=== PATIENT | female | born 1940 | race Caucasian/White ===

== ENCOUNTER 2016-09-24 08:44 | Inpatient (IN) | payer OTHER ==
[2016-09-02 13:51] VITALS: BMI 29.0
--- NOTE | 2016-09-02 14:32 | PAT Medication Instructions ---
Service Date Sep 02, 2016. Current Home Medication List Acetaminophen (Tylenol), 1,000 MG PO TID Aspirin (Aspirin Chewable), 81 MG PO QAM Calcium Carbonate-Vitamin D (Calcium + D), 1 TAB PO BID Levothyroxine Sodium (Levothyroxine Sodium), 1 TAB PO QAM Lisinopril (Prinivil), 20 MG PO QAM Meloxicam (Mobic), 7.5 MG PO BID PRN for Pain Multivitamin (Multivitamin), 1 TAB PO QPM Washington-3 Fatty Acids (Washington 3), 1 CAP PO BID Omeprazole (Prilosec), 20 MG PO QPM Tapentadol Hcl (Nucynta), 50 MG PO BID PRN for RN Triamterene/Hctz (Triamterene/Hctz 37.5-25MG), 1 TAB PO QAM Medication Instructions For Your Scheduled Surgery - Check with surgeon for instructions: Meloxicam (Mobic), 7.5 MG PO BID PRN for Pain - Hold the following medications 2 weeks prior to surgery: Washington-3 Fatty Acids (Washington 3), 1 CAP PO BID - Hold the following medications the morning of surgery: Triamterene/Hctz (Triamterene/Hctz 37.5-25MG), 1 TAB PO QAM Lisinopril (Prinivil), 20 MG PO QAM Multivitamin (Multivitamin), 1 TAB PO QPM Calcium Carbonate-Vitamin D (Calcium + D), 1 TAB PO BID - Take the following medications the morning of surgery with a sip of water: Levothyroxine Sodium (Levothyroxine Sodium), 1 TAB PO QAM Acetaminophen (Tylenol), 1,000 MG PO TID Tapentadol Hcl (Nucynta), 50 MG PO BID PRN for RN Aspirin (Aspirin Chewable), 81 MG PO QAM (okay to continue per surgeon) - Take the following medications as scheduled the night before surgery: Omeprazole (Prilosec), 20 MG PO QPM Calcium Carbonate-Vitamin D (Calcium + D), 1 TAB PO BID Acetaminophen (Tylenol), 1,000 MG PO TID Tapentadol Hcl (Nucynta), 50 MG PO BID PRN for RN If you have any questions please call us at [phone] (Liseth Lerma PA-C) or [phone] or [phone]
[2016-09-02 15:17] LABS: BASO % 0.4 %; BASO ABS # 0.02 K/uL (0-0.2); COMPLETE YES; EOS % 1.3 %; MEAN CELL VOLUME 89.1 fL (80-100); MEAN CORPUSCULAR HEMOGLOBIN 30.9 pg (25-34); MEAN CORPUSCULAR HGB CONC 34.7 g/dl (32-36); MEAN PLATELET VOLUME 8.6 fL (7.4-10.4); NEUT % 49.3 %; PLATELET COUNT 281 K/uL (130-400); RED BLOOD COUNT 4.04 M/uL (4.2-5.4); WHITE BLOOD COUNT 4.63 K/uL (4.8-10.8)
[2016-09-02 15:22] LABS: URINE APPEARANCE CLEAR (CLEAR); URINE BILIRUBIN NEG (NEG); URINE COLOR YELLOW; URINE EPITHELIAL CELL AUTO 0-5 /lpf (0-5); URINE NITRITE NEG (NEG); URINE PH 6.5 (4.5-7.5); URINE SPECIFIC GRAVITY 1.012 (1.000-1.030); UROBILINOGEN NEG (NEG)
[2016-09-02 15:24] LABS: PARTIAL THROMBOPLASTIN RATIO 1.1; PROTHROMBIN TIME (PATIENT) 10.7 SECONDS (9.0-12.0)
[2016-09-02 15:29] LABS: MANUAL MICROSCOPIC REQUIRED? NO; REVIEW REQ? NO
--- NOTE | 2016-09-02 15:31 | DIAGNOSTIC IMAGING REPORT ---
CHEST 2 VIEWS ROUTINE CLINICAL HISTORY: Preoperative chest COMPARISON STUDY: No previous studies for comparison. FINDINGS: There is a thoracolumbar scoliosis. The heart is at the upper limits of normal in size. There is a retrocardiac opacity consistent with a hiatal hernia. There is no focal pulmonary consolidation. There is no failure. There are no pleural effusions.[ IMPRESSION: No active disease in the chest. Electronically signed by: Alex Perez M.D. 09/02/2016 3:29 PM
[2016-09-02 15:52] LABS: ESTIMATED AVERAGE GLUCOSE 97 mg/dl; HA1C FLAG Normal (Normal)
[2016-09-02 16:51] LABS: BUN/CREATININE RATIO 20.9 (10-20); CALCIUM 9.6 mg/dl (8.5-10.1); CREATININE 0.9 mg/dl (0.60-1.20); POTASSIUM 4.1 mmol/L (3.5-5.1)
--- NOTE | 2016-09-23 09:25 | HISTORY & PHYSICAL EXAMINATION ---
DATE OF ADMISSION: 09/24/2016 CHIEF COMPLAINT: Left knee pain. HISTORY OF PRESENT ILLNESS: The patient is a 76-year-old female with known osteoarthritis about her left knee. She has had multiple previous corticosteroid injections. She continues to have pain and disability with activities of daily living and now desires to proceed with left total knee arthroplasty. PAST MEDICAL HISTORY: Acid reflux, basal cell carcinoma, hiatal hernia, hypertension, peripheral vascular disease, thyroid cyst. PAST SURGICAL HISTORY: Right shoulder, cardiac catheterization, cataract surgery, heel spur removal, hysterectomy, thyroidectomy, umbilical hernia repair. MEDICATIONS: Include calcium with vitamin D twice daily, Ecotrin 325 mg daily, levothyroxine 50 mcg daily, lisinopril 20 mg daily, Meloxicam 15 mg daily, multivitamin daily, Nucynta 50 mg q. 6 hours p.r.n., omega-3 fish oil twice daily; Prilosec OTC daily, triamterene/HCTZ 37.5/25 once daily. ALLERGIES: INCLUDE AMOXICILLIN WHICH CAUSES A RASH. SOCIAL HISTORY AND REVIEW OF SYSTEMS: Noncontributory. PHYSICAL EXAMINATION: GENERAL: Well-nourished, well-developed elderly female who appears her stated age. HEENT: Normocephalic, atraumatic, extraocular movements intact, oropharynx pink and moist. NECK: Supple without adenopathy. LUNGS: Clear to auscultation bilaterally. HEART: Regular rate and rhythm. ABDOMEN: Soft, nontender, nondistended. EXTREMITIES: The upper extremity is within normal limits. The left knee has a neutral alignment. She complains primarily of lateral compartment pain. Her range of motion from 0-125 degrees. X-RAYS: X-rays were reviewed. She has a fairly neutrally aligned knee. She has moderate narrowing of the lateral joint compartment with near [id number] arthritis on the flexion view. She has mild degenerative changes about the patellofemoral joint. ASSESSMENT: Left knee degenerative joint disease. PLAN: Risks versus benefits were discussed. Consent was obtained. The patient's primary care physician is Dr. Janelle Avalos from [place]. Her psychological operations is Dr. Javier Lopez from [facility]. Will proceed with left total knee arthroplasty upon preop workup and medical clearance.
[~2016-09-24] VITALS: Ht 152.4 cm; Wt 68.9 kg
[2016-09-24] VITALS (11 sets, daily range): BP systolic 138–183; BP diastolic 70–103; PULSE 69–95; TEMP 34.7–36.8; O2SAT 95–99; Ht 152.4 cm; Wt 68.9 kg
[~2016-09-24 08:44] MED LIST: ACET-1256 PO; ACETAMINOPHEN 500 MG TAB PO SCH; ASPCH81X PO; BUPIVACAINE 0.25% 30 ML VIAL ONE; BUPIVACAINE 0.5 % 5 MG/1 ML PF 10ML VIAL ONE; CALC600T9 PO; CeleBREX 200 MG CAP PO SCH; DEXAMETHASONE 4 MG TAB PO SCH; FAMOTIDINE 20 MG TAB PO SCH; GABAPENTIN 300 MG CAP PO SCH; LACTATED RINGER'S 1000ML 1,000 ML IV SCH; LACTATED RINGER'S 1000ML 500 ML IV ONE; LACTATED RINGER'S 1000ML IV SCH; LEVO25TA5 PO; LISI20TA3 PO; MELO7.5T5 PO; METOCLOPRAMIDE HCL 10 MG TAB PO SCH; MULT-506 PO; OMEG12006 PO; PRLSR20 PO; ROPIVACAINE 5MG/ML 30 ML 150 MG, BUPIVACAINE/EPINEPHR 0.5% MPF 30 ML, KETOROLAC TROMETH... INFIL SCH; TAPE50TA PO; TRIATAB3 PO; VANCOMYCIN INJ 1,050 MG in SODIUM CHLORIDE 0.9% 250ML 250 ML IV SCH
[2016-09-24] MEDS ORDERED: MIDAZOLAM HCL 1 MG/ML 2ML VIAL ONE ×2 (08:46)
[2016-09-24] MEDS ORDERED: FENTANYL CITRATE INJ 50 MCG/1 ML 2 ML VIAL ONE (08:48)
[2016-09-24] MEDS ORDERED: PROPOFOL IV EMULSION 10 MG/ML 20 ML VIAL IV ONE (08:49)
[2016-09-24] MEDS ORDERED: ONDANSETRON INJ 2 MG/ML 2 ML VIAL ONE (08:49)
[2016-09-24] MEDS ORDERED: LIDOCAINE HCL 2% 2 ML VIAL (20MG/ML) ONE (08:49)
--- NOTE | 2016-09-24 09:26 | History & Physical Bridge Note ---
H&P Re-Evaluation Bridge Note: I have examined the patient, reviewed the History & Physical and in the interval since the performance of the History & Physical I have noted the following changes of clinical significance: No changes noted
[2016-09-24] MEDS: TRANEXAMIC ACID INJ 1,000 MG in SODIUM CHLORIDE 0.9% 100ML 100 ML IV SCH ×2 (09:48→15:26)
[2016-09-24] MEDS ORDERED: ORTHO JOINT ANESTHETIC ONE (09:57)
[2016-09-24] MEDS ORDERED: ATROPINE SULFATE 0.1 MG/ML 5ML SYR IV PRN (10:30)
[2016-09-24] MEDS ORDERED: HYDROmorphone INJ 2 MG/ML SYR/VIAL IV PRN (10:30)
[2016-09-24] MEDS ORDERED: KETOROLAC TROMETHAMINE 30 MG/ML VIAL IV. PRN (10:30)
[2016-09-24] MEDS ORDERED: ONDANSETRON INJ 2 MG/ML 2 ML VIAL IV PRN (10:30)
[2016-09-24] MEDS ORDERED: PHENYLEPHRINE 100MCG/ML 5ML SYR IV PRN (10:30)
[2016-09-24] MEDS ORDERED: EpHEDrine SULFATE INJ 50 MG/ML AMP IV PRN (10:30)
[2016-09-24] MEDS ORDERED: MAGNESIUM HYDROXIDE SUSP 30 ML UDC PO PRN (12:00)
[2016-09-24] MEDS ORDERED: BISACODYL 10 MG SUPP PR PRN (12:00)
[2016-09-24] MEDS ORDERED: DiphenhydrAMINE HCL 50 MG/ML VIAL IV PRN (12:00)
[2016-09-24] MEDS ORDERED: ZOLPIDEM TARTRATE 5 MG TAB PO PRN (12:00)
[2016-09-24] MEDS ORDERED: MoRPHine SULFATE 2 MG/ML CARP IV PRN (12:00)
[2016-09-24] MEDS ORDERED: ALUMINUM/MAGNESIUM/SIMETH (MAALOX MAX) 30 ML UDC PO PRN (12:00)
--- NOTE | 2016-09-24 12:20 | DIAGNOSTIC IMAGING REPORT ---
LEFT KNEE 2 VIEWS History: Left total knee arthroplasty. Degenerative arthritis. Postop. FINDINGS: The patient is status post a left total knee arthroplasty. The hardware is intact. No fracture or dislocation. Skin adilia and surgical drains are in place. IMPRESSION: Left total knee arthroplasty. No evidence for hardware complication. Electronically signed by: Damien Ryan M.D. 09/24/2016 12:19 PM Dictated Date/Time: 09/24/2016 12:18 PM
--- NOTE | 2016-09-24 12:35 | Anesthesiology Progress Note ---
Anesthesia Post Op Note Date & Time Sep 24, 2016 at 12:34 Vital Signs Pain Intensity: 0 Vital Signs Past 12 Hours Date Time Temp Pulse Resp B/P Pulse Ox O2 Delivery O2 Flow Rate FiO2 09/24/16 12:25 37 09/24/16 12:23 133/72 09/24/16 12:21 84 20 97 09/24/16 12:21 87 09/24/16 12:18 126/67 09/24/16 12:16 83 15 09/24/16 12:16 81 15 100 09/24/16 12:13 141/56 09/24/16 12:11 77 12 09/24/16 12:11 80 12 100 09/24/16 12:09 121/63 09/24/16 12:06 77 13 100 09/24/16 12:06 76 13 09/24/16 12:04 126/61 09/24/16 12:01 78 11 100 09/24/16 12:01 79 11 09/24/16 12:00 Nasal Cannula 2 09/24/16 11:58 132/57 09/24/16 11:56 76 16 09/24/16 11:56 75 16 100 09/24/16 11:53 133/48 09/24/16 11:51 88 23 09/24/16 11:51 88 23 100 09/24/16 11:49 126/55 09/24/16 11:46 36.7 82 16 126/55 99 Mask 10 09/24/16 09:19 36.6 86 18 183/77 98 Room Air Notes Mental Status: alert / awake / arousable, participated in evaluation Pt Amnestic to Procedure: Yes Nausea / Vomiting: adequately controlled Pain: adequately controlled Airway Patency, RR, SpO2: stable & adequate BP & HR: stable & adequate Hydration State: stable & adequate Anesthetic Complications: no major complications apparent
[2016-09-24] MEDS ORDERED: MoRPHine SULFATE 4 MG/ML 1 ML CARP\\VIAL IV PRN (13:45)
[2016-09-24] MEDS ORDERED: MoRPHine SULFATE 10 MG/ML CARP/VIAL IV PRN (13:45)
[2016-09-24] MEDS: OXYCODONE HCL IR 5 MG TAB (IMMEDIATE RELEASE) PO PRN (15:25)
[2016-09-24] MEDS: D5W AND 1/2NSS + 20MEQ KCL 1,000 ML IV SCH (19:23)
[2016-09-24] MEDS: CLINDAMYCIN IV 600 MG in DEXTROSE 5% ADD-VANTAGE 50ML 50 ML IV SCH (19:24)
[2016-09-24] MEDS: FERROUS GLUCONATE 324 MG TAB PO SCH (19:24)
[2016-09-24] MEDS: CALCIUM 600MG + VIT D 400 IU TAB PO SCH (19:24)
[2016-09-24] MEDS: ASPIRIN 81 MG ECTAB PO SCH (21:17)
[2016-09-24] MEDS: DOCUSATE SODIUM 100 MG CAP PO SCH (21:19)
[2016-09-24] MEDS: ACETAMINOPHEN 500 MG TAB PO SCH (21:19)
[2016-09-24] MEDS: MULTIVITAMIN TAB PO SCH (21:20)
[2016-09-24] MEDS: SENNA 8.6 MG TAB PO SCH (21:20)
[2016-09-24] MEDS: OXYCODONE HCL 10 MG TABCR (OXYCONTIN) PO SCH (21:23)
[2016-09-25 00:14] VITALS: BP 172/77; PULSE 73; TEMP 36.5; O2SAT 96
[2016-09-25] MEDS: CLINDAMYCIN IV 600 MG in DEXTROSE 5% ADD-VANTAGE 50ML 50 ML IV SCH (01:33)
[2016-09-25] MEDS: OXYCODONE HCL IR 5 MG TAB (IMMEDIATE RELEASE) PO PRN ×2 (02:00→06:33)
[2016-09-25 03:13] VITALS: BP 169/80; PULSE 83; TEMP 36.6; O2SAT 95
[2016-09-25] MEDS: ONDANSETRON INJ 2 MG/ML 2 ML VIAL IV PRN ×2 (03:25→09:23)
[2016-09-25] MEDS: D5W AND 1/2NSS + 20MEQ KCL 1,000 ML IV SCH (03:51)
[2016-09-25 05:37] LABS: HEMATOCRIT 28.1 % (37-47); MEAN CELL VOLUME 87.8 fL (80-100); MEAN CORPUSCULAR HEMOGLOBIN 30.3 pg (25-34); MEAN CORPUSCULAR HGB CONC 34.5 g/dl (32-36); MEAN PLATELET VOLUME 8.9 fL (7.4-10.4); PLATELET COUNT 208 K/uL (130-400); WHITE BLOOD COUNT 9.18 K/uL (4.8-10.8)
[2016-09-25] MEDS: ACETAMINOPHEN 500 MG TAB PO SCH ×3 (05:45→21:09)
[2016-09-25] MEDS: LEVOTHYROXINE 25 MCG TAB PO SCH (05:45)
[2016-09-25 06:06] LABS: BUN/CREATININE RATIO 25.1 (10-20); CALCIUM 8.6 mg/dl (8.5-10.1); CREATININE 0.98 mg/dl (0.60-1.20); POTASSIUM 3.7 mmol/L (3.5-5.1)
--- NOTE | 2016-09-25 07:43 | Orthopedic Progress Note ---
Orthopedic Progress Note Date of Service Sep 25, 2016. Subjective Post OP Day: 1 Reports: feeling well (Pt with more c/o left hip pain than knee pain, h/o trochanteric bursitis) Objective N/V intact, dressing C/D/I, toes mobile Date Time Temp Pulse Resp B/P Pulse Ox O2 Delivery O2 Flow Rate FiO2 09/25/16 07:30 Room Air 09/25/16 03:13 36.6 83 16 169/80 95 Room Air 09/25/16 00:18 Room Air 09/24/16 23:23 36.8 69 14 146/72 97 Room Air 09/24/16 23:15 71 138/71 09/24/16 19:30 34.7 95 18 180/103 97 Room Air 09/24/16 17:29 36.4 70 18 155/80 99 Nasal Cannula 2.0 09/24/16 16:39 36.6 76 20 151/83 98 Nasal Cannula 2.0 09/24/16 16:25 36.6 78 16 144/70 98 Nasal Cannula 2.0 09/24/16 16:00 95 Nasal Cannula 2.0 09/24/16 15:30 36.3 79 20 163/81 95 Nasal Cannula 2.0 09/24/16 14:45 36.7 90 16 155/80 99 Nasal Cannula 2.0 09/24/16 14:44 98 Nasal Cannula 2.0 09/24/16 14:13 142/70 09/24/16 14:12 90 14 09/24/16 14:12 90 14 99 09/24/16 14:08 133/80 09/24/16 14:07 83 14 09/24/16 14:07 84 14 99 09/24/16 14:03 138/66 09/24/16 14:02 84 12 99 09/24/16 14:02 84 12 09/24/16 13:58 142/67 09/24/16 13:57 86 18 98 09/24/16 13:57 88 18 09/24/16 13:53 123/67 09/24/16 13:52 86 15 09/24/16 13:52 83 15 98 09/24/16 13:48 134/66 09/24/16 13:47 89 16 98 09/24/16 13:47 90 16 09/24/16 13:43 131/69 09/24/16 13:42 80 13 09/24/16 13:42 78 13 99 09/24/16 13:38 129/67 09/24/16 13:37 83 21 09/24/16 13:37 86 21 95 09/24/16 13:33 110/67 09/24/16 13:32 76 13 09/24/16 13:32 72 13 99 09/24/16 13:28 139/66 09/24/16 13:27 83 22 93 09/24/16 13:27 81 22 09/24/16 13:23 130/63 09/24/16 13:22 80 12 99 09/24/16 13:22 81 12 09/24/16 13:18 147/76 09/24/16 13:17 83 20 98 09/24/16 13:17 83 20 09/24/16 13:13 138/62 09/24/16 13:12 86 12 99 09/24/16 13:12 84 12 09/24/16 13:08 138/68 09/24/16 13:07 84 17 09/24/16 13:07 84 17 98 09/24/16 13:03 143/65 09/24/16 13:02 86 13 99 09/24/16 13:02 86 13 09/24/16 12:58 129/64 09/24/16 12:57 80 17 09/24/16 12:57 80 17 99 09/24/16 12:53 144/69 09/24/16 12:52 83 23 99 09/24/16 12:52 84 23 09/24/16 12:51 80 16 09/24/16 12:51 74 16 97 09/24/16 12:48 142/70 09/24/16 12:46 72 20 09/24/16 12:46 74 20 99 09/24/16 12:43 145/69 09/24/16 12:41 77 17 09/24/16 12:41 75 17 100 09/24/16 12:38 134/67 09/24/16 12:36 83 20 98 09/24/16 12:36 84 09/24/16 12:33 144/66 09/24/16 12:31 79 10 100 09/24/16 12:31 80 10 09/24/16 12:28 145/64 09/24/16 12:26 72 18 100 09/24/16 12:26 74 18 09/24/16 12:25 37 09/24/16 12:23 133/72 09/24/16 12:21 84 20 97 09/24/16 12:21 87 09/24/16 12:18 126/67 09/24/16 12:16 83 15 09/24/16 12:16 81 15 100 09/24/16 12:13 141/56 09/24/16 12:11 77 12 09/24/16 12:11 80 12 100 09/24/16 12:09 121/63 09/24/16 12:06 77 13 100 09/24/16 12:06 76 13 09/24/16 12:04 126/61 09/24/16 12:01 78 11 100 09/24/16 12:01 79 11 09/24/16 12:00 Nasal Cannula 2 09/24/16 11:58 132/57 09/24/16 11:56 76 16 09/24/16 11:56 75 16 100 09/24/16 11:53 133/48 09/24/16 11:51 88 23 09/24/16 11:51 88 23 100 09/24/16 11:49 126/55 09/24/16 11:46 36.7 82 16 126/55 99 Mask 10 09/24/16 09:19 36.6 86 18 183/77 98 Room Air Laboratory Results 24 Hours: Test 09/25/16 04:54 Hematocrit 28.1 % Hemoglobin 9.7 g/dL Assessment & Plan Assessment: 76 yo female stable POD #1 s/p left TKA, left hip troch bursitis Plan: 1. Med management- will order steroid injection for left hip 2. DVT prophylaxis- ASA, TEDs, SCDs 3. PT/OT 4. D/C planning- home w/ OPPT
[2016-09-25 07:56] VITALS: BP 170/84; PULSE 75; TEMP 36.5; O2SAT 97
[2016-09-25] MEDS: FERROUS GLUCONATE 324 MG TAB PO SCH ×3 (08:30→17:45)
[2016-09-25] MEDS: CALCIUM 600MG + VIT D 400 IU TAB PO SCH ×2 (08:30→18:30)
--- NOTE | 2016-09-25 08:37 | Anesthesiology Progress Note ---
Anesthesia Post Op Note Date & Time Sep 25, 2016 at 08:36 Vital Signs Pain Intensity: 8.0 Vital Signs Past 12 Hours Date Time Temp Pulse Resp B/P Pulse Ox O2 Delivery O2 Flow Rate FiO2 09/25/16 07:56 36.5 75 16 170/84 97 Room Air 09/25/16 07:30 Room Air 09/25/16 03:13 36.6 83 16 169/80 95 Room Air 09/25/16 00:18 Room Air 09/24/16 23:23 36.8 69 14 146/72 97 Room Air 09/24/16 23:15 71 138/71 Notes Mental Status: alert / awake / arousable, participated in evaluation Pt Amnestic to Procedure: Yes Nausea / Vomiting: adequately controlled Pain: adequately controlled Airway Patency, RR, SpO2: stable & adequate BP & HR: stable & adequate Hydration State: stable & adequate Neuraxial Anesthesia: was administered, sensory block resolved Anesthetic Complications: no major complications apparent
[2016-09-25] MEDS ORDERED: BUPIVACAINE 0.5 % 5 MG/1 ML MPF 30ML VIAL INFIL ONE (09:00)
[2016-09-25] MEDS ORDERED: MULTIVITAMIN TAB PO SCH (09:00)
[2016-09-25] MEDS ORDERED: TRIAMCINOLONE ACET 40 MG/ML VIAL IA ONE (09:00)
[2016-09-25] MEDS: DOCUSATE SODIUM 100 MG CAP PO SCH ×2 (09:00→20:13)
[2016-09-25] MEDS ORDERED: ETHYL CHLORIDE AER SPR 100 ML CAN EXT ONE (09:00)
[2016-09-25] MEDS: OXYCODONE HCL 10 MG TABCR (OXYCONTIN) PO SCH (10:47)
[2016-09-25 10:49] VITALS: BP 174/84; PULSE 80; TEMP 36.4; O2SAT 100
[2016-09-25] MEDS: PANTOprazole SOD 40 MG TAB PO SCH (10:49)
[2016-09-25] MEDS: LISINOPRIL 20 MG TAB PO SCH (10:50)
[2016-09-25] MEDS: ASPIRIN 81 MG ECTAB PO SCH ×2 (10:50→20:13)
[2016-09-25] MEDS: TRIAMTERENE/HCTZ 37.5/25MG TAB PO SCH (10:50)
[2016-09-25] MEDS ORDERED: TAPENTADOL HCL 50 MG TAB PO PRN (12:30)
[2016-09-25] MEDS ORDERED: NURSING VERBAL MED ORDER ONE (12:30)
[2016-09-25] MEDS: TAPENTADOL HCL 50 MG TAB PO PRN ×3 (12:39→19:37)
--- NOTE | 2016-09-25 13:22 | Orthopedic Progress Note ---
Orthopedic Progress Note Date of Service Sep 25, 2016. Subjective Additional Notes: ATSP by Praveen Rivera PA-C to give patient a trochanteric bursa injection for flare up of bursitis. Pt awake, alert eating her lunch. States she is having pain over the left trochanteric bursa and points to the place where she is having her pain. Objective No erythema over the left hip. Pain with palpation over the trochanteric bursa. Procedure: Site marked for injection. Site cleansed with 3 alcohol wipes and 3 betadine swabs and let to dry. Ethyl chloride sprayed over the injection site. 40mg of Triamcinolone and 3cc of Bupivacaine 0.5% injected into the trochanteric bursa area without difficulty. Band aid applied to the injection site. No bleeding noted. Date Time Temp Pulse Resp B/P Pulse Ox O2 Delivery O2 Flow Rate FiO2 09/25/16 10:49 36.4 80 18 174/84 100 Room Air 09/25/16 07:56 36.5 75 16 170/84 97 Room Air 09/25/16 07:30 Room Air 09/25/16 03:13 36.6 83 16 169/80 95 Room Air 09/25/16 00:18 Room Air 09/24/16 23:23 36.8 69 14 146/72 97 Room Air 09/24/16 23:15 71 138/71 09/24/16 19:30 34.7 95 18 180/103 97 Room Air 09/24/16 17:29 36.4 70 18 155/80 99 Nasal Cannula 2.0 09/24/16 16:39 36.6 76 20 151/83 98 Nasal Cannula 2.0 09/24/16 16:25 36.6 78 16 144/70 98 Nasal Cannula 2.0 09/24/16 16:00 95 Nasal Cannula 2.0 09/24/16 15:30 36.3 79 20 163/81 95 Nasal Cannula 2.0 09/24/16 14:45 36.7 90 16 155/80 99 Nasal Cannula 2.0 09/24/16 14:44 98 Nasal Cannula 2.0 09/24/16 14:13 142/70 09/24/16 14:12 90 14 09/24/16 14:12 90 14 99 09/24/16 14:08 133/80 09/24/16 14:07 83 14 09/24/16 14:07 84 14 99 09/24/16 14:03 138/66 09/24/16 14:02 84 12 99 09/24/16 14:02 84 12 09/24/16 13:58 142/67 09/24/16 13:57 86 18 98 09/24/16 13:57 88 18 09/24/16 13:53 123/67 09/24/16 13:52 86 15 09/24/16 13:52 83 15 98 09/24/16 13:48 134/66 09/24/16 13:47 89 16 98 09/24/16 13:47 90 16 09/24/16 13:43 131/69 09/24/16 13:42 80 13 09/24/16 13:42 78 13 99 09/24/16 13:38 129/67 09/24/16 13:37 83 21 09/24/16 13:37 86 21 95 09/24/16 13:33 110/67 09/24/16 13:32 76 13 09/24/16 13:32 72 13 99 09/24/16 13:28 139/66 09/24/16 13:27 83 22 93 09/24/16 13:27 81 22 09/24/16 13:23 130/63 09/24/16 13:22 80 12 99 09/24/16 13:22 81 12 09/24/16 13:18 147/76 09/24/16 13:17 83 20 98 09/24/16 13:17 83 20 09/24/16 13:13 138/62 09/24/16 13:12 86 12 99 09/24/16 13:12 84 12 09/24/16 13:08 138/68 09/24/16 13:07 84 17 09/24/16 13:07 84 17 98 Laboratory Results 24 Hours: Test 09/25/16 04:54 Hematocrit 28.1 % Hemoglobin 9.7 g/dL Assessment & Plan Assessment: 76 yo female stable POD #1 s/p left TKA, left hip troch bursitis Plan: Continue current protocol. Will continue to follow....
[2016-09-25 15:16] VITALS: BP 135/71; PULSE 71; TEMP 36.4; O2SAT 93
[2016-09-25] MEDS: SENNA 8.6 MG TAB PO SCH (20:13)
[2016-09-25] MEDS: MULTIVITAMIN TAB PO SCH (20:14)
[2016-09-25] MEDS ORDERED: ASPEC81 PO (21:39)
--- NOTE | 2016-09-25 21:45 | Discharge Instructions ---
Discharge Instructions Admission Reason for Admission: Left Knee Osteoarthritis Discharge Discharge Diagnosis / Problem: Left total knee arthroplasty Discharge Goals Goal(s): Decrease discomfort, Improve function, Increase independence, Therapeutic intervention Activity Recommendations Activity Limitations: per Instructions/Follow-up section ACTIVITY RECOMMENDATIONS: SELF CARE INSTRUCTIONS AFTER TOTAL KNEE REPLACEMENT A. You may need to continue a physical therapy program after discharge from the hospital. There are several options available to you. Your doctor will assist you in selecting the best one for you. 1. An out-patient facility 3 times a week for therapy. 2. Home therapy for 1 to 2 weeks with outpatient therapy to follow. 3. Continue working on all exercises taught by physical therapy three times a day for 20 minutes on non-therapy days. Your goals should be to increase the bending of your knee to 90 degrees and beyond and to fully straighten your knee. Ice and elevate knee after exercise. B. Weight as tolerated with a walker or as instructed by your physician. C. It is okay to shower if minimal to no drainage from incision. No Baths. Do not soak wound. D. Make walking a part of your daily routine. Be up as much as comfortable with rest periods throughout the day. Rest with leg elevation is very important. Use the ice wrap frequently for the first 3-4 weeks. E. There are no restrictions on activities. You may ride in a car, shop, participate in family program specialist and all social activities. F. Wear the long elastic stockings (MERARI hose) 20 hours a day for one month after surgery. They can be removed several times a day for laundering and when showering. SPECIAL CARE INSTRUCTIONS: VERY IMPORTANT TO READ AND REVIEW A. Take Coumadin, Xarelto, Aspirin or Lovenox (blood thinning medications) as directed by your doctor. If on Coumadin, have a pro-time (blood test) drawn according to your doctor's instructions. This will tell the doctor how well the Coumadin is thinning your blood. B. There are a few signs you need to watch for after you are home. Call [facility] if you notice any of the followin. Increased severe knee pain. Some pain is expected especially when you exercise. 2. Increased swelling in your leg or knee; pain or swelling of the calf muscle in either lower leg. 3. Any redness or fluid drainage from the incision. 4. Shortness of breath or chest pain. 5. A Temperature of 101 degrees F or greater. C. Please call [facility] at if you have any concerns or questions about your operation or recovery. The doctor or his nurse will return your call promptly. D. You must take antibiotics before dental work, bladder, bowel or other surgery. Your doctor will provide you with a permanent care to carry describing this precaution. FOLLOW UP VISIT: If appointment is not already scheduled: Please call [facility] to make a follow-up appointment for 2 weeks after your surgery at . . Instructions / Follow-Up Instructions / Follow-Up 2 week f/u appt with Praveen Rivera PA-C Current Hospital Diet Patient's current hospital diet: Regular Diet Discharge Diet Recommended Diet: Regular Diet Procedures Procedures Performed: Left Total Knee Arthroplasty Cemented Pending Studies Studies pending at discharge: no Laboratory Results Hemoglobin A1c Test 09/02/16 14:39 Range/Units Estimated Average Glucose 97 mg/dl Hemoglobin A1c 5.0 4.5-5.6 % Medical Emergencies . Who to Call and When: Medical Emergencies: If at any time you feel your situation is an emergency, please call 911 immediately. . Non-Emergent Contact Non-Emergency issues call your: Primary Care Provider Past History Medical & Surgical History: (1) Left knee DJD . "Provider Documentation" section prepared by Pati Jolly. VTE Core Measure Inpt VTE Proph given/why not?: Other Anticoagulation (ASA), T.E.D. Stockings, SCD's
[2016-09-25 23:15] VITALS: BP 172/77; PULSE 73; TEMP 36.5; O2SAT 96
[2016-09-26] MEDS: TAPENTADOL HCL 50 MG TAB PO PRN ×4 (02:55→17:46)
[2016-09-26 03:10] VITALS: BP 171/79
[2016-09-26 05:59] VITALS: BP 164/74; PULSE 86
[2016-09-26] MEDS: LEVOTHYROXINE 25 MCG TAB PO SCH (06:00)
[2016-09-26] MEDS: ACETAMINOPHEN 500 MG TAB PO SCH ×3 (06:01→21:48)
[2016-09-26] MEDS: FERROUS GLUCONATE 324 MG TAB PO SCH ×3 (07:43→17:45)
[2016-09-26 08:12] VITALS: BP 174/84; PULSE 86; TEMP 36.9; O2SAT 95
[2016-09-26] MEDS: CALCIUM 600MG + VIT D 400 IU TAB PO SCH ×2 (08:52→17:45)
[2016-09-26] MEDS: DOCUSATE SODIUM 100 MG CAP PO SCH ×2 (08:52→20:51)
[2016-09-26] MEDS: ASPIRIN 81 MG ECTAB PO SCH ×2 (08:52→20:51)
[2016-09-26] MEDS: LISINOPRIL 20 MG TAB PO SCH (08:53)
[2016-09-26] MEDS: TRIAMTERENE/HCTZ 37.5/25MG TAB PO SCH (08:53)
[2016-09-26] MEDS: PANTOprazole SOD 40 MG TAB PO SCH ×2 (08:53→08:56)
[2016-09-26] MEDS ORDERED: NURSING VERBAL MED ORDER ONE (09:00)
--- NOTE | 2016-09-26 13:08 | Orthopedic Progress Note ---
Orthopedic Progress Note Date of Service Sep 26, 2016. Subjective Post OP Day: 2 Reports: feeling well, pain controlled w PO medications, Denies: SOB, calf pain , chest pain, light headedness, nausea / vomiting Objective calves soft nontender, N/V intact, capillary refill less than 2 sec., dressing C /D/I, A&O x3, toes mobile Date Time Temp Pulse Resp B/P Pulse Ox O2 Delivery O2 Flow Rate FiO2 09/26/16 08:18 Room Air 09/26/16 08:12 36.9 86 18 174/84 95 Room Air 09/26/16 05:59 86 164/74 09/26/16 03:10 171/79 09/25/16 23:15 36.5 73 17 172/77 96 Room Air 09/25/16 19:30 Room Air 09/25/16 15:16 36.4 71 18 135/71 93 Room Air Assessment & Plan Assessment: 76 yo female stable POD #2 s/p left TKA, left hip troch bursitis Plan: Continue current protocol. Will continue to follow.... Inhouse Planning Pain Management: PO Tylenol, other (nucynta) DVT Prophylaxis: TEDs, SCDs, ASA Discharge Planning Discharge Planning: home with oppt Discharge Planning Notes: Plan for discharge tomorrow if pain well controlled
[2016-09-26 15:23] VITALS: BP 147/72; PULSE 78; TEMP 36.8; O2SAT 96
[2016-09-26] MEDS ORDERED: PANTOprazole SOD 40 MG TAB PO SCH (17:00)
[2016-09-26] MEDS: SENNA 8.6 MG TAB PO SCH (20:51)
[2016-09-26] MEDS: MULTIVITAMIN TAB PO SCH (20:51)
[2016-09-26 23:32] VITALS: BP 149/69; PULSE 84; TEMP 37.1; O2SAT 97
[2016-09-27] MEDS: TAPENTADOL HCL 50 MG TAB PO PRN ×3 (00:56→12:50)
[2016-09-27] MEDS: LEVOTHYROXINE 25 MCG TAB PO SCH (05:25)
[2016-09-27] MEDS: ACETAMINOPHEN 500 MG TAB PO SCH (05:25)
[2016-09-27 08:12] VITALS: BP 160/76; PULSE 88; TEMP 36.8; O2SAT 97
[2016-09-27] MEDS: LISINOPRIL 20 MG TAB PO SCH (08:21)
[2016-09-27] MEDS: ASPIRIN 81 MG ECTAB PO SCH (08:21)
[2016-09-27] MEDS: CALCIUM 600MG + VIT D 400 IU TAB PO SCH (08:21)
[2016-09-27] MEDS: TRIAMTERENE/HCTZ 37.5/25MG TAB PO SCH (08:21)
[2016-09-27] MEDS: DOCUSATE SODIUM 100 MG CAP PO SCH (08:21)
[2016-09-27] MEDS: FERROUS GLUCONATE 324 MG TAB PO SCH (08:21)
--- NOTE | 2016-09-27 08:35 | Orthopedic Progress Note ---
Orthopedic Progress Note Date of Service Sep 27, 2016. Subjective Post OP Day: 3 Reports: feeling well, pain controlled w PO medications, Denies: SOB, calf pain , chest pain, light headedness Objective calves soft nontender, N/V intact, capillary refill less than 2 sec., dressing C /D/I, A&O x3, toes mobile Date Time Temp Pulse Resp B/P Pulse Ox O2 Delivery O2 Flow Rate FiO2 09/27/16 08:17 Room Air 09/27/16 08:12 36.8 88 16 160/76 97 Room Air 09/27/16 00:01 Room Air 09/26/16 23:32 37.1 84 15 149/69 97 Room Air 09/26/16 15:23 36.8 78 17 147/72 96 Room Air 09/26/16 15:15 Room Air Assessment & Plan Assessment: 76 yo female stable POD #3 s/p left TKA, left hip troch bursitis Inhouse Planning Pain Management: PO Tylenol, other (nucynta) DVT Prophylaxis: TEDs, SCDs, ASA Discharge Planning Discharge Planning: home with oppt Pain Management: PO Tylenol, other DVT Prophylaxis: TEDs, ASA Discharge Planning Notes: Plan for discharge today with OPPT if goes well with therapy. Otherwise may go home with Home health
[2016-09-27] MEDS ORDERED: ACET-1138 PO (08:37)
[2016-09-27] MEDS ORDERED: ONDA8TAB6 PO (08:37)
[2016-09-27] MEDS ORDERED: NCY50 PO (08:37)
[2016-09-27 10:05] VITALS: BP 160/76; PULSE 88; TEMP 36.8; O2SAT 97
--- NOTE | 2016-09-29 07:03 | DISCHARGE SUMMARY ---
DISCHARGE DIAGNOSIS: Degenerative joint disease, left knee. SECONDARY DIAGNOSES: Gastroesophageal reflux disease, history of basal cell carcinoma, hiatal hernia, hypertension, peripheral vascular disease, history of thyroid cyst. CONSULTS: None. COMPLICATIONS: None. PROCEDURE: Left total knee arthroplasty performed by Dr. Lo on 09/24/2016. BRIEF HISTORY: As dictated in the history and physical. HOSPITAL SUMMARY: The patient was admitted on the above-noted date and had the above-noted surgery performed which she tolerated well. On her first postoperative day, she was feeling well. She complained with more left hip pain, knee pain and she had a history of trochanteric bursitis. Neurovascularly intact. Dressings clean, dry and intact and toes were mobile. Vital signs were stable and she was afebrile. Blood pressures were fluctuating anywhere from 133-169 systolic. Hemoglobin was 9.7. A steroid injection was ordered for her left hip trochanteric bursa and this was given to her on 09/25/2016, which she tolerated well. On her second postoperative day, she was feeling well, pain was controlled. Calves were soft and nontender, neurovascularly intact. Dressings were clean, dry and intact. Toes were mobile. Vital signs were stable, although her blood pressures continued to fluctuate anywhere from 135-174 systolic. The rest of her stay was essentially uneventful. She was feeling well by her third postoperative day and pain was controlled. Her blood pressures were still somewhat fluctuating but were somewhat improved. She was progressing with her physical therapy and it was felt that she could be discharged to home on 09/27/2016. For further review, please see chart. LAB AND X-RAY DATA: As per chart. DISCHARGE INSTRUCTIONS: The patient was discharged to home in satisfactory condition on 09/27/2016. DIET: Regular. ACTIVITY: Follow TKA instruction sheets and special care instructions as noted. Follow up with Dr. Lo in 2 weeks. The patient to call for appointment if one has not been made for you. DISCHARGE MEDICATIONS: Acetaminophen 1000 mg p.o. q. 8 hours, aspirin 81 mg p.o. b.i.d., Zofran 8 mg p.o. q. 8 hours p.r.n., Nucynta 50-100 mg p.o. q. 4 hours p.r.n., resume taking calcium plus D 1 tab p.o. b.i.d., levothyroxine 125 mcg p.o. q.a.m., lisinopril 20 mg p.o. q.a.m., multivitamin 1 tab p.o. q.p.m., omega-3 1 cap p.o. b.i.d., omeprazole 20 mg p.o. q.p.m., triamterene/hydrochlorothiazide 37.5/25 one tab p.o. q.a.m. Stop taking your daily aspirin tablet that your were taking, resume this once you have stopped taking the b.i.d. aspirin dosing. Stop taking meloxicam, stop taking your Nucynta that you were taking at home.
--- NOTE | 2016-10-02 09:59 | OPERATIVE REPORT ---
DATE OF OPERATION: 08/24/2016 PREOPERATIVE DIAGNOSIS: Osteoarthritis left knee. POSTOPERATIVE DIAGNOSIS: Osteoarthritis left knee. PROCEDURE: Left total knee arthroplasty. SURGEON: Dr. Lo. TELEVISION PICTURE TUBE REBUILDER: Praveen Rivera PA-C. ANESTHESIA: Spinal. COMPLICATIONS: None. OPERATION AND FINDINGS: Following induction of spinal anesthesia, the patient's left leg was prepped and draped in the usual sterile manner. Limb was exsanguinated with an Esmarch bandage and tourniquet was inflated to 350 mmHg. A longitudinal incision was made anteriorly. Subcutaneous tissue was sharply dissected. Electrocautery was used for hemostasis. Prepatellar bursa was incised and median parapatellar incision was performed. Patella was everted and the knee was flexed. Fat pad was removed to aid in visualization and the anterior and posterior cruciate ligaments were removed. The medial face of the tibia was cleared of soft tissue first with a Bovie and a Chakraborty elevator. This tissue was retracted posteriorly using a blunt Hohmann. A Desouza retractor was used to expose the synovium above on the anterior aspect of the femur and this was removed down to bone. The PSI guide was placed on the distal femur and two pins were placed anteriorly and kept in position and two additional pins were placed distally and removed. The distal femoral cutting block was placed in position and the distal femoral cut was used in the +0 setting. Next, the cutting block was removed and the size 3 block was placed in the distal end of the femur. Care was taken to ensure appropriate external rotation and feeler gauge was used to ensure no notching would occur. The femoral block was centered on the distal femur and in the medial and lateral direction and was fixed using two bone screws. The gold pins were then removed. The oscillating saw was used to create the bone cuts and the distal femoral cutting block was removed and the reciprocating saw was used to further trim the femoral cuts as well as a deep in the area for the trochlear groove. Next, posterior condyle remnants were removed. Following this, a meniscal clamp and knife were utilized to remove the anterior portion of both medial and lateral meniscus. The proximal tibia PSI guide was placed into position and the proximal tibial cutting guide was screwed into position. The extra medullary alignment guide was utilized to ensure appropriate alignment. The proximal tibia was cut and the proximal tibial cutting block was removed and this bone fragment was removed. The appropriate guide was used to perform the notch cut on the distal femur and a lamina roadway engineer and a cochlear knife were utilized to finish both medial and lateral meniscectomies to remove any remnants of the posterior or anterior cruciate ligaments. Following this, the distal femoral component was impacted into position and blunt Mirza was used to sublux the tibia anteriorly. The proximal tibia was sized and a size 2 tibial tray was chosen as the size to be used. This was put into position and appropriate external rotation and a double check with extramedullary alignment guide was performed. The canal for the tibial stem was prepared first with a 17 mm drill and then the punch and a mallet and the trial tibial poly was placed. A size 9 was chosen the size to be used. It was brought to extension and the patella was prepared with the patellar reamer. A size 33 component was chosen the size to be used. The trial component was placed and knee was taken through a full range of motion and there was found to be no lateral subluxation of the tibia. No lateral release was required. The trials were all removed. The final components were obtained and assembled. Cement was mixed. The knee was thoroughly irrigated and the ortho mix was injected about the knee joint. The final components were cemented into position. After thoroughly suctioning and drying the bone ends, all excess cement was removed. The knee was held in extension while the cement hardened. The wound was irrigated and closed over a Hemovac drain. #1 Vicryl was used to close the extensor mechanism. Subcutaneous tissues closed using 0 Dexon. Skin was closed with adilia. Sterile dressing of Adaptic, 4 x 4's, sterile Webril, and Fredis was applied. The patient tolerated the procedure well. Recovery room stable. Due to the complex nature of the procedure, the entire surgery was performed with the operational assistance of Praveen Rivera PA-C. The retail loan originator assistant, under direct supervision, was involved in the actual performance of all aspects of the surgical procedure including hemostasis, tissue retraction and incision, instrument management, patient positioning, and wound closure. I attest to the content of the Intraoperative Record and any orders documented therein. Any exceptio ns are noted below.
--- NOTE | 2016-10-09 12:50 | OPERATIVE REPORT ---
DATE OF OPERATION: 09/24/2016 PREOPERATIVE DIAGNOSIS: Osteoarthritis, left knee. POSTOPERATIVE DIAGNOSIS: Osteoarthritis, left knee. PROCEDURE: Left total knee arthroplasty. SURGEON: Dr. Lo. ANDROID PLATFORM DEVELOPER: BETTYE Palmer. ANESTHESIA: Spinal. COMPLICATIONS: None. OPERATION AND FINDINGS: Following induction of spinal anesthesia, the patient's left leg was prepped and draped in the usual sterile manner. Limb was exsanguinated with an Esmarch bandage and tourniquet was inflated to 350 mmHg. A longitudinal incision was made anteriorly. Subcutaneous tissue was sharply dissected. Electrocautery was used for hemostasis. Prepatellar bursa was incised and median parapatellar incision was performed. Patella was everted and the knee was flexed. Fat pad was removed to aid in visualization and the anterior and posterior cruciate ligaments were removed. The medial face of the tibia was cleared of soft tissue first with a Bovie and a Chakraborty elevator. This tissue was retracted posteriorly using a blunt Hohmann. A Desouza retractor was used to expose the synovium above on the anterior aspect of the femur and this was removed down to bone. The PSI guide was placed on the distal femur and two pins were placed anteriorly and kept in position and two additional pins were placed distally and removed. The distal femoral cutting block was placed in position and the distal femoral cut was used in the +0 setting. Next, the cutting block was removed and the 3 block was placed in the distal end of the femur. Care was taken to ensure appropriate external rotation and feeler gauge was used to ensure no notching would occur. The femoral block was centered on the distal femur and in the medial and lateral direction and was fixed using two bone screws. The gold pins were then removed. The oscillating saw was used to create the bone cuts and the distal femoral cutting block was removed and the reciprocating saw was used to further trim the femoral cuts as well as a deep in the area for the trochlear groove. Next, posterior condyle remnants were removed. Following this, a meniscal clamp and knife were utilized to remove the anterior portion of both medial and lateral meniscus. The proximal tibia PSI guide was placed into position and the proximal tibial cutting guide was screwed into position. The extra medullary alignment guide was utilized to ensure appropriate alignment. The proximal tibia was cut and the proximal tibial cutting block was removed and this bone fragment was removed. The appropriate guide was used to perform the notch cut on the distal femur and a lamina fine grade bulldozer operator and a cochlear knife were utilized to finish both medial and lateral meniscectomies to remove any remnants of the posterior or anterior cruciate ligaments. Following this, the distal femoral component was impacted into position and blunt Mirza was used to sublux the tibia anteriorly. The proximal tibia was sized and a 2 tibial tray was chosen as the size to be used. This was put into position and appropriate external rotation and a double check with extramedullary alignment guide was performed. The canal for the tibial stem was prepared first with a 17 mm drill and then the punch and a mallet and the trial tibial poly was placed. A 9 was chosen the size to be used. It was brought to extension and the patella was prepared with the patellar reamer. A 33 component was chosen the size to be used. The trial component was placed and knee was taken through a full range of motion and there was found to be no lateral subluxation of the tibia. No lateral release was required. The trials were all removed. The final components were obtained and assembled. Cement was mixed. The knee was thoroughly irrigated and the ortho mix was injected about the knee joint. The final components were cemented into position. After thoroughly suctioning and drying the bone ends, all excess cement was removed. The knee was held in extension while the cement hardened. The wound was irrigated and closed over a Hemovac drain. #1 Vicryl was used to close the extensor mechanism. Subcutaneous tissues closed using 0 Dexon. Skin was closed with adilia. Sterile dressing of Adaptic, 4 x 4's, sterile Webril, and Fredis was applied. The patient tolerated the procedure well, recovery room stable. Due to the complex nature of the procedure, the entire surgery was performed with the operational assistance of BETTYE Palmer. The clinical education assistant, under direct supervision, was involved in the actual performance of all aspects of the surgical procedure including hemostasis, tissue retraction and incision, instrument management, patient positioning, and wound closure. I attest to the content of the Intraoperative Record and any orders documented therein. Any exceptio ns are noted below.
== END 2016-09-27 13:05 | disposition home or self-care (01) | DRG 470 ==
LOC: ENRESERVDT → ENRESERVTM → C.ACU 08:44 → C.3E 09:00
PROC: 0SRD0J9 Replacement of Left Knee Joint with Synthetic Substitute, Cemented, Open Approach (ICD-10-PCS; principal; 2015-09-24)
DX: M17.12 Unilateral primary osteoarthritis, left knee (principal); M70.62 Trochanteric bursitis, left hip; I10 Essential (primary) hypertension; E89.0 Postprocedural hypothyroidism; K21.9 Gastro-esophageal reflux disease without esophagitis; I73.9 Peripheral vascular disease, unspecified; Z86.718 Personal history of other venous thrombosis and embolism; Z79.1 Long term (current) use of non-steroidal anti-inflammatories (NSAID); Z79.82 Long term (current) use of aspirin; Z79.891 Long term (current) use of opiate analgesic; Z79.899 Other long term (current) drug therapy

== ENCOUNTER → 2017-04-02 | Outpatient (CLI) | payer OTHER ==
[~2017-04-02] MED LIST changes: +ACET-1138 PO; -ACET-1256 PO; -ACETAMINOPHEN 500 MG TAB PO SCH; -ASPCH81X PO; +ASPEC81 PO; -BUPIVACAINE 0.25% 30 ML VIAL ONE; -BUPIVACAINE 0.5 % 5 MG/1 ML PF 10ML VIAL ONE; -CeleBREX 200 MG CAP PO SCH; -DEXAMETHASONE 4 MG TAB PO SCH; -FAMOTIDINE 20 MG TAB PO SCH; -GABAPENTIN 300 MG CAP PO SCH; -LACTATED RINGER'S 1000ML 1,000 ML IV SCH; -LACTATED RINGER'S 1000ML 500 ML IV ONE; -LACTATED RINGER'S 1000ML IV SCH; -MELO7.5T5 PO; -METOCLOPRAMIDE HCL 10 MG TAB PO SCH; +NCY50 PO; -ROPIVACAINE 5MG/ML 30 ML 150 MG, BUPIVACAINE/EPINEPHR 0.5% MPF 30 ML, KETOROLAC TROMETH... INFIL SCH; -TAPE50TA PO; -VANCOMYCIN INJ 1,050 MG in SODIUM CHLORIDE 0.9% 250ML 250 ML IV SCH
== END | disposition home or self-care (01) ==
LOC: C.PAPS 14:52
PROVIDERS: ATTEND Obstetrics & Gynecology
DX: Z01.419 Encounter for gynecological examination (general) (routine) without abnormal findings (principal)

== ENCOUNTER → 2018-04-05 | Outpatient (CLI) | payer OTHER ==
[~2018-04-05] MED LIST changes: -ASPEC81 PO; +ASPI-320 PO
== END ==
LOC: C.PAPS 15:14
PROVIDERS: ATTEND Obstetrics & Gynecology
DX: Z12.4 Encounter for screening for malignant neoplasm of cervix (principal)